=== PATIENT | female | born 1980 | race Caucasian/White ===

== ENCOUNTER 2023-11-08 08:00 | Emergency (ER) | payer MEDICAID ==
[~2023-11-08] VITALS: Ht 152.4 cm; Wt 58.0 kg
[2023-11-08 08:17] VITALS: O2SAT 100
[2023-11-08] MEDS: KETOROLAC 30MG/ML VIAL IM ONE (08:51)
[2023-11-08] MEDS: METOCLOPRAMIDE HCL 5MG TABLET PO ONE (08:51)
[2023-11-08] MEDS: ACETAMINOPHEN 325MG TABLET PO ONE (08:51)
[2023-11-08 09:23] VITALS: BP 106/70; PULSE 72; RESP 16; TEMP 37.05852; O2SAT 100
== END 2023-11-08 09:43 | disposition home or self-care (01) ==
LOC: ER 09:01
DX: R51.9 Headache, unspecified (principal)
CPT/HCPCS: 99283; 71045; 96372; J8597; J1885